=== PATIENT | male | born 1960 | race Caucasian/White ===

== ENCOUNTER 2016-09-05 22:02 | Observation (INO) | payer OTHER ==
--- NOTE | ~2016-09-05 | HP ---
History And Physical [id number] [place]. [address] NAME: ALEX CUNNINGHAM : 58 STATUS : DIS Cindy PAT#: [id number] AGE: 55 ADM/REG DATE : 09/05/16 MR#: [id number] REPORT SERV DATE: 09/06/16 DICTATED BY: TRAN KYLE DATE: 09/06/16 REPORT STATUS : Draft TRANSCRIBED BY: MODKayla DATE: 09/06/16 DATE OF ADMISSION: 09/05/2016 METALLURGICAL LAB TECHNICIAN: Dr. Sadler. CHIEF COMPLAINT: Chest pain, smothering with lying down and weight gain. HISTORY OF PRESENT ILLNESS: This is a pleasant 55-year-old white male, patient well known to Dr. Sadler. He has a history of a late presentation ST-elevation OR with subsequent regional wall motion abnormality and mild LV dysfunction. He did undergo a stent to his LAD with that acute OR in 04/2010. He has had no myocardial infarctions or stents since then. He does also have a history of hypertension and hyperlipidemia. He also ascribes to former tobacco use. He reports that he has slowly been gaining weight, but he denies ankle edema. He does not weigh himself regularly and only knows that he has gained 14 pounds in one year. He reports smothering and a funny feeling in his chest that he describes as a heaviness with lying down. He also reports escalating dyspnea on exertion and chest heaviness with exertion that has been ongoing for approximately 1+ weeks. He went to the emergency room yesterday as he could not sleep the night before due to paroxysmal nocturnal dyspnea. After that, yesterday, he was walking in his horse [place] and he felt chest pain and worsened dyspnea on exertion compared to the baseline. He, therefore, decided to present to the emergency department. Currently, he denies any symptoms and reports he has no chest pain, and while sitting up in bed, he denies any dyspnea. He reports he was able to sleep well and did not feel smothered. PAST MEDICAL HISTORY: 1. Status post late presentation ST-elevation anterior myocardial infarction 04/19/2010, status post bare-metal stent to the left anterior descending along with minor disease in the circumflex and right coronary arteries. Left ventricular ejection fraction 40% on ventriculography at that time. Last stress test was performed 03/13/2012 where he achieved Chase stage 4. It was considered to be intermediate risk due to a moderate sized fixed defect consistent with a prior myocardial infarction, however, there was no acute ischemia. Ejection fraction on that study was 44%. Last echocardiogram 09/08/2011 with ejection fraction of 49% with distal anterior and apical regional wall motion abnormality and trace TR. 2. History of mildly decreased left ventricular ejection fraction. Please see discussion above. 3. Disability due to back problems. 4. Former tobacco use in the form of cigarettes, quitting at the time of his acute OR. 5. History of head trauma and abdominal trauma 08/2013 with an injury related to a horse. He did have a subarachnoid hemorrhage and was taken off aspirin and has been off it since then. He did also undergo a bowel resection with complications. 6. Hyperlipidemia. 7. Hypertension. 8. Chronic back pain. History And Physical [address] [address] NAME: ALEX CUNNINGHAM : 58 STATUS : DIS Cindy PAT#: [id number] AGE: 55 ADM/REG DATE : 09/05/16 MR#: [id number] REPORT SERV DATE: 09/06/16 DICTATED BY: TRAN KYLE DATE: 09/06/16 REPORT STATUS : Draft TRANSCRIBED BY: STEFAN DATE: 09/06/16 9. Reflux. PAST SURGICAL HISTORY: 1. Back surgery. 2. Partial colectomy secondary to trauma. SOCIAL HISTORY: He lives alone. He does have a girlfriend. He has a daughter, who is his next of kin. He reports her name is Imelda Cunningham. He reports he is disabled related to back pain. He formally smoked one to two packs per day and did so for 30 years, quitting 04/2010 with his myocardial infarction. FAMILY HISTORY: Positive for coronary artery disease. REVIEW OF SYSTEMS: He reports he has been off aspirin since the subarachnoid hemorrhage with head trauma related to the horse accident 08/2013. No recent stress testing or echocardiogram since 2011. As above per HPI, all other systems reviewed and negative. ALLERGIES: NO KNOWN ALLERGIES. MEDICATIONS: Home medication list is as follows, 1. Lisinopril 5 mg p.o. every morning. 2. Pravastatin 40 mg p.o. at bedtime. 3. Zetia 10 mg p.o. at bedtime. 4. Omeprazole 20 mg p.o. every morning. 5. Coreg 3.125 mg p.o. twice per day. 6. Aldactone 12.5 mg p.o. every morning. 7. Latta 7.5/325 mg tablet, one tablet p.o. twice per day, which was verified with [facility]. PHYSICAL EXAMINATION: VITAL SIGNS: Oxygen saturation 95% on room air, height 188 cm, weight 88.9 kg, temperature 97.7, pulse 81, respiratory rate 18, blood pressure 124/80. GENERAL: Well developed, well nourished. In no apparent distress. HEENT: Head normocephalic. No xanthelasma. Sclera clear, anicteric. Moist mucous membranes without pallor. No lymphadenopathy. No deficits noted. NECK: Trachea midline. Supple. No thyromegaly, JVD, or bruits. RESPIRATORY: Unlabored respirations. Breath sounds clear bilaterally to posterior auscultation. No wheezes, rhonchi or crackles. CARDIOVASCULAR: Regular rate and rhythm. No murmur, rub, or gallop appreciated. No chest wall tenderness to palpation. ABDOMEN: Soft, nontender, and nondistended. Active bowel sounds auscultated x4 quadrants. No organomegaly and no masses. No aortic bruit. EXTREMITIES: DP/PT and radial pulses 2+ bilaterally. No clubbing, cyanosis, or edema. SKIN: Warm, dry, intact. No rash. Normal turgor. MUSCULOSKELETAL: Moves all extremities in bed without difficulty. NEURO/PSYCH: Alert and oriented x3 with no acute distress. Affect appropriate to current situation. History And Physical [address] [id number] NAME: ALEX CUNNINGHAM : 58 STATUS : DIS Cindy PAT#: [id number] AGE: 55 ADM/REG DATE : 09/05/16 MR#: [id number] REPORT SERV DATE: 09/06/16 DICTATED BY: TRAN KYLE DATE: 09/06/16 REPORT STATUS : Draft TRANSCRIBED BY: STEFAN DATE: 09/06/16 LABORATORY DATA: BMP: Sodium 143, potassium 4.2, creatinine 0.85, glucose 96, magnesium 2.3. CBC: White blood cell count 5.7, hemoglobin 15.4, hematocrit 44.4, platelets 233. Troponin less than 0.02 x2. STUDIES: Chest x-ray performed 09/05/2016, lungs clear, heart size is normal. EKGs personally interpreted x3, normal sinus rhythm with anteroseptal infarct. Left axis deviation noted. No acute ischemia. Telemetry sinus rhythm, no events. Nuclear stress test, Chase stage 2 achieved. No chest pain. No EKG changes of ischemia. Anteroseptal OR at rest on EKG with dynamic T-wave changes during exercise. Imaging demonstrated no ischemia as below. Extensive fixed anterior, anteroseptal, and apical defect suggesting previous OR. Post exercise LVEF 38%. Cardiomegaly noted. Consider echocardiogram for better assessment of ejection fraction. Overall intermediate risk stress test, but again no EKG changes of ischemia and imaging demonstrated no ischemia. This was performed 09/06/2016. ASSESSMENT/PLAN: 1. Precordial chest pain in a patient with risk factors of known history of coronary artery disease, status post stent and myocardial infarction; hypertension; hyperlipidemia; and family history of coronary artery disease. Two negative troponins and the patient was ruled out for acute coronary syndrome with no acute ischemia on EKG. I ordered a nuclear stress test given dyspnea on exertion and chest pain. The stress test did not demonstrate any ischemia on imaging or EKG. It was similar to prior nuclear stress test in that it did reveal his extensive fixed anteroseptal and apical defect suggesting that known prior infarction. Given that LVEF was 38% and that he had not had a recent echocardiogram since 2011, I ordered an outpatient echocardiogram. He will also follow up with his sampler radioactive waste, Dr. Sadler in three to four weeks. He is also to follow up with Dr. Palomo, his primary care provider in one week. 2. Dyspnea on exertion/orthopnea. Chest x-ray was negative. There was no edema. I did provide Lasix x1 dosage only. Again, follow up with Dr. Sadler. 3. History of coronary artery disease, status post stent to the LAD in 04/2010. I continued his home medications, which include statin, beta-danitza, and GUILLERMO inhibitor. He reports he is off aspirin due to the history of subarachnoid hemorrhage. He can discuss aspirin further with a followup appointment with Dr. Sadler. 4. History of myocardial infarction with known regional wall motion abnormalities and mild LV dysfunction. Again, follow up with Cardiology and get outpatient echocardiogram. 5. Chronic mildly reduced left ventricular ejection fraction of 40%. Please see discussion above. We will continue Aldactone, Coreg, and GUILLERMO inhibitor. The patient was also seen in the stress testing area by rounding sampler radioactive waste for CPOU. TATIANA/STEFAN Tran Kyle, History And Physical [address] [address] NAME: ALEX CUNNINGHAM : 58 STATUS : DIS Cindy PAT#: [id number] AGE: 55 ADM/REG DATE : 09/05/16 MR#: [id number] REPORT SERV DATE: 09/06/16 DICTATED BY: TRAN KYLE DATE: 09/06/16 REPORT STATUS : Draft TRANSCRIBED BY: STEFAN DATE: 09/06/16 VARNISH REMOVER / [id number] CC: Belkis Crane, MSN, PARAPROFESSIONAL AIDE-BC Samir Sadler Jr., M.D.
[2016-09-05 15:09] LABS: BASOPHILS 1.1 %; BASOPHILS ABSOLUTE 0.06 10/3/uL (0.0-0.16); EOSINOPHILS 1.9 %; EOSINOPHILS ABSOLUTE 0.11 10/3/uL (0.0-0.53); ER CBC TAT 0 Hrs 07 Mins; HEMATOCRIT 44.4 % (40.0-51.0); HEMOGLOBIN 15.4 g/dL (13.6-17.8); IMMATURE GRANULOCYTES 0.2 %; IMMATURE GRANULOCYTES ABSOLUTE 0.01 10/3/uL (0.0-0.11); LYMPHOCYTES 27.1 %; LYMPHOCYTES ABSOLUTE 1.55 10/3/uL (0.67-4.30); MEAN CORPUS HGB CONC 34.7 g/dL (32.0-36.0); MEAN CORPUSCULAR HEMOGLOB 31.6 pg (26.0-34.0); MEAN CORPUSCULAR VOLUME 91.2 fL (80-100); MONOCYTES 7.5 %; MONOCYTES ABSOLUTE 0.43 10/3/uL (0.21-1.20); NEUTROPHILS 62.2 %; NEUTROPHILS ABSOLUTE 3.55 10/3/uL (2.02-8.40); PLATELET COUNT 233 10/3/uL (150-400); RBC DISTRIBUTION WIDTH 13.1 % (12.0-16.0); RED CELL COUNT 4.87 10/6/uL (4.7-6.1); WHITE BLOOD CELLS 5.7 10/3/uL (4.5-10.5)
[2016-09-05 15:10] LABS: MANUAL DIFF NO %
[2016-09-05 15:23] LABS: PARTIAL THROMBO TIME 23.9 SEC (22.5-37.2); PROTIME (NOT ORD) 13.3 SEC (12.0-14.5)
[2016-09-05 15:27] LABS: BUN (BLOOD UREA NITROGEN) 10 MG/DL (6-23); CALCIUM, SERUM 9.1 MG/DL (8.5-10.4); CHEST PAIN PROFILE TAT 0 Hrs 25 Mins; CHLORIDE, SERUM 109 MMOL/L (96-112); CO2 (CARBON DIOXIDE) 28 MMOL/L (24-34); CREATININE 0.85 MG/DL (0.70-1.30); GFR AFRICAN AMERICAN 113 ML/MIN (>=60); GFR NON AFRICAN AMERICAN 97 ML/MIN (>=60); GLUCOSE, SERUM 96 MG/DL (60-99); POTASSIUM, SERUM 4.2 MMOL/L (3.5-5.3); SODIUM, SERUM 143 MMOL/L (135-148); TROPONIN I <0.02 NG/ML (<0.05)
[2016-09-05] MEDS ORDERED: PRIN5 PO (23:28)
[2016-09-05] MEDS ORDERED: PRAVACHOL40 MG PO (23:28)
[2016-09-05] MEDS ORDERED: ZETIA PO (23:29)
[2016-09-05] MEDS ORDERED: PRILO PO (23:29)
[2016-09-05] MEDS ORDERED: SPIRO25 PO (23:30)
[2016-09-05] MEDS ORDERED: COREG3 PO (23:30)
[2016-09-05] MEDS ORDERED: NORCO1 TA2 PO (23:33)
== END 2016-09-06 15:12 | disposition home or self-care (01) ==
LOC: ER 22:02 → CDU1 22:09
PROVIDERS: Emergency Medicine
DX: R07.2 Precordial pain (principal); I25.10 Atherosclerotic heart disease of native coronary artery without angina pectoris; I25.2 Old myocardial infarction; I10 Essential (primary) hypertension; E78.5 Hyperlipidemia, unspecified; K21.9 Gastro-esophageal reflux disease without esophagitis; E78.00 Pure hypercholesterolemia, unspecified; G89.29 Other chronic pain; M54.9 Dorsalgia, unspecified; F17.210 Nicotine dependence, cigarettes, uncomplicated; Z82.49 Family history of ischemic heart disease and other diseases of the circulatory system; Z90.49 Acquired absence of other specified parts of digestive tract; Z98.890 Other specified postprocedural states
CPT/HCPCS: 71020; 78452; 80048; 83735; 84484; 85025; 85610; 85730; 93005; 93017; 96374; 99285; A9270-GY; A9502; G0378